=== PATIENT | male | born 1990 | race Caucasian/White ===

== ENCOUNTER 2017-07-04 15:09 | Emergency (ER) | payer OTHER | END 2017-07-04 16:36 | disposition home or self-care (01) | LOC: MADERS 15:09 | DX: K21.9 Gastro-esophageal reflux disease without esophagitis (principal); F17.210 Nicotine dependence, cigarettes, uncomplicated | CPT/HCPCS: 99283 ==

== ENCOUNTER 2017-10-20 10:42 | Emergency (ER) | payer OTHER | END 2017-10-20 13:11 | disposition home or self-care (01) | LOC: MADERS 10:42 | DX: J02.9 Acute pharyngitis, unspecified (principal); F17.210 Nicotine dependence, cigarettes, uncomplicated | CPT/HCPCS: 99283 ==

== ENCOUNTER 2019-04-11 15:11 | Emergency (ER) | payer OTHER ==
[2019-04-11] MEDS ORDERED: Ibuprofen 800 MG TAB ONE (15:35)
== END 2019-04-11 16:04 | disposition home or self-care (01) ==
LOC: MADERS 15:11
DX: J02.9 Acute pharyngitis, unspecified (principal); H92.01 Otalgia, right ear; Z71.6 Tobacco abuse counseling
CPT/HCPCS: 87081; 87430; 99283

== ENCOUNTER 2019-07-11 10:08 | Emergency (ER) | payer SELFPAY | END 2019-07-11 10:44 | disposition home or self-care (01) | LOC: MADERS 10:08 | DX: J02.9 Acute pharyngitis, unspecified (principal); F17.210 Nicotine dependence, cigarettes, uncomplicated; Z71.6 Tobacco abuse counseling | CPT/HCPCS: 99406 ==